=== PATIENT | female | born 1945 | race Caucasian/White ===

== ENCOUNTER 2016-07-07 08:00 | Outpatient (CLI) | payer BC, MEDICARE | END 2016-07-07 08:01 | disposition home or self-care (01) | DX: K57.92 Diverticulitis of intestine, part unspecified, without perforation or abscess without bleeding (principal); E03.9 Hypothyroidism, unspecified ==

== ENCOUNTER 2016-10-20 19:45 | Outpatient (CLI) | payer BC, MEDICARE | END 2016-10-20 19:46 | disposition home or self-care (01) | DX: R60.0 Localized edema (principal) ==

== ENCOUNTER 2016-10-26 12:50 | Outpatient (CLI) | payer BC, MEDICARE | END 2016-10-26 12:51 | disposition home or self-care (01) | DX: R06.00 Dyspnea, unspecified (principal); I25.10 Atherosclerotic heart disease of native coronary artery without angina pectoris ==

== ENCOUNTER 2017-02-17 09:22 | Outpatient (CLI) | payer BC, MEDICARE ==
[2017-02-17 13:03] LABS: HCT - HEMATOCRIT 38.5 % (37.0-47.0); HGB - HEMOGLOBIN 12.4 g/dL (12.0-16.0); MEAN CORPUSCULAR HEMOGLOBIN 28.4 pg (27.0-31.0); MEAN CORPUSCULAR HGB CONC 32.2 g/dL (32.0-36.0); MEAN CORPUSCULAR VOLUME 88.2 fL (81.0-99.0); MEAN PLATELET VOLUME 10.3 fL (7.9-10.8); RED BLOOD COUNT 4.37 10^6/uL (4.20-5.40); RED CELL DISTRIBUTION WIDTH 15.5 % (12.0-15.0); WHITE BLOOD COUNT 12.2 x10^3/uL (4.8-10.8)
[2017-02-17 13:34] LABS: ALBUMIN/GLOBULIN RATIO 0.9 (1.0-2.2); BILIRUBIN,TOTAL 0.4 mg/dL (0.2-1.0); BUN - BLOOD UREA NITROGEN 34 mg/dL (6-20); CALCIUM 9.4 mg/dL (8.5-10.3); CARBON DIOXIDE - CO2 20 mmol/L (21-32); CHLORIDE 113 mmol/L (101-111); CHOL/HDL RATIO 4.3 (<4.4); CHOLESTEROL 147 mg/dL; CREATININE 1.6 mg/dL (0.4-1.0); GFR - MDRD 32 (>89); GLUCOSE 104 mg/dL (70-100); HDL CHOLESTEROL 34 mg/dL; POTASSIUM 3.5 mmol/L (3.5-5.0); SODIUM 142 mmol/L (135-145); TOTAL PROTEIN 7.4 g/dL (6.7-8.2); TRIGLYCERIDES 231 mg/dL; URIC ACID 10.4 mg/dL (2.6-7.2); VLDL CHOLESTEROL 46 mg/dL
== END 2017-02-17 09:23 | disposition home or self-care (01) ==
LOC: LAB.WCP 09:22
PROVIDERS: ATTEND Family Medicine
DX: I25.10 Atherosclerotic heart disease of native coronary artery without angina pectoris (principal); M10.00 Idiopathic gout, unspecified site
CPT/HCPCS: 36415; 80053; 80061; 84550; 86140

== ENCOUNTER 2017-03-01 19:09 | Outpatient (CLI) | payer BC, MEDICARE ==
--- NOTE | 2017-03-01 20:19 | Ultrasound Preliminary Report ---
Exam: US Abdomen Limited IMPRESSION: distended gallbladder, sludge, gallbladder wall top normal for caliber and positive Trujillo's sign. Th is suggests early acalculus cholecystitis. [facility] SITE ID: [id number]
--- NOTE | 2017-03-01 20:36 | Ultrasound Report ---
EXAM: ABDOMEN ULTRASOUND LIMITED, RUQ EXAM DATE: 03/01/2017 07:54 PM. CLINICAL HISTORY: Abdominal pain, right upper quadrant. COMPARISON: CT abdomen and pelvis 06/28/2016. Limited abdominal ultrasound 08/10/2010. TECHNIQUE: Real-time scanning was performed with static images obtained. FINDINGS: Liver: Normal in size and echotexture. 14.5 cm. Main portal vein flow: Hepatopetal. Gallbladder: Distended. Gallbladder wall measures 3.0 mm. Focal tenderness. Moderate amount of sludge within the gallbladder. No gallstones. No pericholecystic fluid. Biliary System: CBD measures 8 mm. No intrahepatic biliary duct dilatation. Other: Right kidney measures 10.1 cm in length. There is a 9 mm cyst. No solid renal mass lesions nor hydronephrosis. No free fluid. IMPRESSION: Distended gallbladder, sludge, gallbladder wall top normal for caliber and positive Trujillo's sign. Th is suggests early acalculus cholecystitis. [facility] Referring Provider Line: [phone] SITE ID: [id number]
== END 2017-03-01 19:10 | disposition home or self-care (01) ==
LOC: DI 19:09
PROVIDERS: ATTEND Family Medicine
DX: R10.11 Right upper quadrant pain (principal); K82.8 Other specified diseases of gallbladder
CPT/HCPCS: 76705

== ENCOUNTER 2017-03-05 01:47 | Outpatient (CLI) | payer BC, MEDICARE | END 2017-03-05 01:48 | disposition critical access hospital (66) | LOC: EMS 01:47 | PROVIDERS: ATTEND Surgery | DX: R10.11 Right upper quadrant pain (principal) | CPT/HCPCS: A0425; A0427 ==

== ENCOUNTER 2017-03-05 02:14 | Inpatient (IN) | payer BC, MEDICARE ==
[2017-03-05] MEDS ORDERED: HYDROmorphone 1 MG/ML SYRINGE IVP STA (02:20)
[2017-03-05] MEDS ORDERED: ONDANSETRON 4 MG/2 ML VIAL IVP STA (02:20)
[2017-03-05] MEDS ORDERED: KETOROLAC 60 MG/2 ML VIAL IVP STA (02:20)
[2017-03-05] MEDS ORDERED: SODIUM CHLORIDE 0.9% 1,000 ML IV ONE (02:20)
[2017-03-05] MEDS ORDERED: KETOROLAC 30 MG/ML VIAL ONE (02:25)
[2017-03-05] MEDS ORDERED: ONDANSETRON 4 MG/2 ML VIAL ONE (02:26)
[2017-03-05] MEDS ORDERED: HYDROmorphone 1 MG/ML SYRINGE ONE (02:29)
[2017-03-05 02:35] LABS: EOSINOPHILS # (AUTO) 0.2 10^3/uL (0.0-0.7)
[2017-03-05 02:42] LABS: BASOPHILS # (AUTO) 0.1 10^3/uL (0.0-0.1); BASOPHILS % (AUTO) 0.7 %; EOSINOPHILS % (AUTO) 1.4 %; HCT - HEMATOCRIT 37.3 % (37.0-47.0); HGB - HEMOGLOBIN 12.2 g/dL (12.0-16.0); LYMPHOCYTES # (AUTO) 1.1 10^3/uL (1.5-3.5); LYMPHOCYTES % (AUTO) 7.1 %; MEAN CORPUSCULAR HEMOGLOBIN 28.4 pg (27.0-31.0); MEAN CORPUSCULAR HGB CONC 32.6 g/dL (32.0-36.0); MEAN CORPUSCULAR VOLUME 87.1 fL (81.0-99.0); MEAN PLATELET VOLUME 9.7 fL (7.9-10.8); MONOCYTES # (AUTO) 0.9 10^3/uL (0.0-1.0); MONOCYTES % (AUTO) 5.6 %; NEUTROPHILS % (AUTO) 85.2 %; RED BLOOD COUNT 4.28 10^6/uL (4.20-5.40); RED CELL DISTRIBUTION WIDTH 15.5 % (12.0-15.0); UNCORRECTED WHITE BLOOD COUNT 15.3 x10^3/uL; WHITE BLOOD COUNT 15.3 x10^3/uL (4.8-10.8)
[2017-03-05 02:44] LABS: ALBUMIN/GLOBULIN RATIO 0.9 (1.0-2.2); BILIRUBIN,TOTAL 1.2 mg/dL (0.2-1.0); CALCIUM 9.2 mg/dL (8.5-10.3); CREATININE 1.7 mg/dL (0.4-1.0); POTASSIUM 3.9 mmol/L (3.5-5.0); TOTAL PROTEIN 7.2 g/dL (6.7-8.2)
--- NOTE | 2017-03-05 03:00 | ED Physician Documentation ---
PD HPI ABD PAIN - Stated complaint Stated Complaint: RUQ PN - Chief complaint Chief Complaint: Abd Pain - History obtained from History obtained from: Patient - History of Present Illness Timing - onset: How many hours ago (1.5) Timing - details: Still present Pain level max: 10 Pain level now: 3 Quality: Pain Location: RUQ Improved by: Meds Associated symptoms: Nausea, Vomiting. No: Fever, Chest pain Similar symptoms before: Diagnosis (RUQ U/S 2 days ago revealed findings suggestive of acalculous cholecystitis.) Recently seen: Clinic - Treatment prior to arrival Treatment prior to arrival: Medics administered Fentanyl 150 mcg and Zofran 4 mg IV. - Additional information Additional information: The patient is a 71-year-old female who arrives via ambulance with right upper quadrant abdominal pain that started about 1.5 hours prior to arrival. She reports associated nausea and vomiting. Her pain was initially a 10 out of 10 in severity, but has improved to 3 out of 10 after administration of fentanyl and Zofran by paramedics. She was recently diagnosed with acalculous cholecystitis by ultrasound that was done 2 days ago. She is scheduled for cholecystectomy on 03/15/2017, but with her history of coronary artery disease, presurgical cardiac workup was anticipated. She denies recent fever, chest pain , or shortness of breath. She last ate at 6:30, when she had a salad with tomatoes and olives. Review of Systems Constitutional: denies: Fever Nose: denies: Congestion Throat: denies: Sore throat Cardiac: denies: Chest pain / pressure Respiratory: denies: Dyspnea, Cough GI: reports: Abdominal Pain, Nausea, Vomiting. 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 Cardiovascular: Coronary stent - Present Medications Home Medications: Ambulatory Orders Medication Instructions Recorded Confirmed Aspirin 81 mg PO DAILY 06/28/16 06/28/16 Atorvastatin [Lipitor] 40 mg PO QPM 06/28/16 06/28/16 Enalapril [Vasotec] 10 mg PO BID 06/28/16 06/28/16 Furosemide 40 mg PO DAILY PRN 06/28/16 06/28/16 Levothyroxine Sodium 150 mg PO DAILY 06/28/16 06/28/16 Metoprolol Tartrate [Lopressor] 25 mg PO BID 06/28/16 06/28/16 Oxybutynin [Ditropan] 5 mg PO BID PRN 06/28/16 06/28/16 Ciprofloxacin/Ciprofloxa HCl 500 mg PO BID #10 tbmp.24hr 06/30/16 [Cipro Xr 500 mg Tablet] Metronidazole 500 mg PO TID #21 tablet 06/30/16 - Allergies Allergies/Adverse Reactions: Allergies Allergy/AdvReac Type Severity Reaction Status Date / Time gentian jori Allergy Hives Verified 03/05/17 02:21 esomeprazole magnesium * AdvReac Unknown Verified 03/05/17 02:21 [From Nexium] - Social History Does the pt smoke?: Yes Smoking Status: Current every day smoker Does the pt drink ETOH?: No Does the pt have substance abuse?: No - Immunizations Immunizations are current?: Yes PD ED PE NORMAL - Vitals Vital signs reviewed: Yes (hypertensive) - General General: Alert and oriented X 3, Well developed/nourished - HEENT HEENT: EOMI, Moist mucous membranes, Pharynx benign - Neck Neck: No adenopathy, No JVD - Cardiac Cardiac: RRR, No murmur - Respiratory Respiratory: No respiratory distress, Clear bilaterally - Abdomen Abdomen: Normal bowel sounds, Soft, Other (Tenderness to palpation in the right upper quadrant, with positive Trujillo sign.) - Back Back: No CVA TTP - Derm Derm: No rash - Extremities Extremities: No edema, No calf tenderness / cord - Neuro Neuro: Alert and oriented X 3, No motor deficit, Normal speech Results - Vitals Vitals: Vital Signs - 24 hr 03/05/17 02:15 Temperature 36.0 C L Heart Rate 73 Respiratory 24 Rate Blood Pressure 158/80 H O2 Saturation 96 Oxygen O2 Source Room air - Labs Labs: Laboratory Tests 03/05/17 03/05/17 02:22 02:22 WBC 15.3 H RBC 4.28 Hgb 12.2 Hct 37.3 MCV 87.1 MCH 28.4 MCHC 32.6 RDW 15.5 H Plt Count 294 MPV 9.7 Neut # 13.0 H Lymph # 1.1 L Nobles # 0.9 Eos # 0.2 Baso # 0.1 Absolute Nucleated RBC 0.00 Nucleated RBCs 0.0 Sodium 138 Potassium 3.9 Chloride 103 Carbon Dioxide 21 Anion Gap 14.0 H BUN 32 H Creatinine 1.7 H Estimated GFR (MDRD) 29 L Glucose 145 H Calcium 9.2 Total Bilirubin 1.2 H AST 101 H ALT 106 H Alkaline Phosphatase 697 H Total Protein 7.2 Albumin 3.4 Globulin 3.8 Albumin/Globulin Ratio 0.9 L Lipase 89 H PD MEDICAL DECISION MAKING - ED course Complexity details: reviewed old records, reviewed results, re-evaluated patient , considered differential, d/w patient, d/w websphere commerce consultant ED course: The patient's presentation is most consistent with cholecystitis, with right upper quadrant tenderness, and white cell count of 15.3, with elevated alkaline phosphatase to 697, and bilirubin 1.2. Treatment in the emergency department included administration of normal saline IV, Dilaudid 1 mg IV, ketorolac 30 mg IV, and Zofran 4 mg IV. Her pain and nausea resolved with the above treatment, but on reexamination she continues to have right upper quadrant tenderness. I discussed her condition with Dr. Vegas, who will admit her for further evaluation and treatment. Departure - Departure Disposition: [facility] DC/nAgi Clinical Impression: Cholecystitis Condition: Stable
[2017-03-05] MEDS ORDERED: ONDANSETRON 4 MG/2 ML VIAL IVP PRN (03:21)
[2017-03-05] MEDS ORDERED: MORPHINE 2 MG/ML SYRINGE IVP PRN (03:21)
[2017-03-05] MEDS ORDERED: PIPERACILLIN/TAZOBACTAM 3.375 GM in SODIUM CHLORIDE 0.9% MINIBAG 100 ML IV SCH (04:00)
[2017-03-05] MEDS: LACTATED RINGERS 1,000 ML IV SCH ×3 (04:36→23:46)
[2017-03-05] MEDS: SODIUM CHLORIDE FLUSH 0.9% 10 ML SYRINGE IVP SCH ×3 (05:17→21:20)
[2017-03-05 08:49] LABS: BASOPHILS # (AUTO) 0.1 10^3/uL (0.0-0.1); BASOPHILS % (AUTO) 0.7 %; EOSINOPHILS # (AUTO) 0.1 10^3/uL (0.0-0.7); EOSINOPHILS % (AUTO) 0.5 %; HGB - HEMOGLOBIN 11.1 g/dL (12.0-16.0); LYMPHOCYTES # (AUTO) 0.9 10^3/uL (1.5-3.5); LYMPHOCYTES % (AUTO) 7.7 %; MEAN CORPUSCULAR HEMOGLOBIN 28.3 pg (27.0-31.0); MEAN CORPUSCULAR HGB CONC 32.5 g/dL (32.0-36.0); MEAN PLATELET VOLUME 9.1 fL (7.9-10.8); MONOCYTES # (AUTO) 0.7 10^3/uL (0.0-1.0); MONOCYTES % (AUTO) 5.5 %; NEUTROPHILS # (AUTO) 10.5 10^3/uL (1.5-6.6); NEUTROPHILS % (AUTO) 85.6 %; RED CELL DISTRIBUTION WIDTH 15.5 % (12.0-15.0); UNCORRECTED WHITE BLOOD COUNT 12.2 x10^3/uL; WHITE BLOOD COUNT 12.2 x10^3/uL (4.8-10.8)
[2017-03-05 09:00] LABS: BILIRUBIN,TOTAL 1.5 mg/dL (0.2-1.0); CALCIUM 8.5 mg/dL (8.5-10.3); CREATININE 1.4 mg/dL (0.4-1.0); POTASSIUM 4.4 mmol/L (3.5-5.0); TOTAL PROTEIN 5.9 g/dL (6.7-8.2)
[2017-03-05] MEDS ORDERED: LEVOTHYROXINE 75 MCG TABLET PO SCH (09:00)
--- NOTE | 2017-03-05 10:22 | HISTORY & PHYSICAL EXAMINATION ---
DATE OF ADMISSION: 03/05/2017 REASON FOR ADMISSION: Acute cholecystitis. HISTORY OF PRESENT ILLNESS: This is a 71-year-old female who in the recent past was diagnosed with ac alculous cholecystitis. She was seen by me in the office approximately 1 week ago and surgery was julio c nned for a week from next Wednesday. In the interim, she developed increasing right upper quadrant pa in associated with nausea and vomiting and was seen in the emergency department. Upon evaluation in [facility] ER, she was noted to have a white blood cell count of 15 with elevated LFTs, including a total molina irubin of 1.2 and an alkaline phosphatase of 697. Subsequently, a surgical consultation was obtained. Upon my evaluation of the patient, she is now resting comfortably with her abdominal pain improved. Her vital signs are stable. PAST MEDICAL HISTORY: Significant for cardiovascular disease status post 2 myocardial infarcts in the past, the most recent was 5 years ago. Her integrity manager is Dr. Rai who she was last seen by appr oximately a month ago. She denies any shortness of breath at rest, but does have some shortness of br eath with exertion. Additional medical history includes hypertension, hypercholesterolemia, hypothyro idism, overactive bladder. PAST SURGICAL HISTORY: Total abdominal hysterectomy and oophorectomy, appendectomy, and lysis of adhe sions. Additionally, the patient has undergone an ERCP in 2010 for similar problems. SOCIAL HISTORY: The patient smokes 1/4 of a pack of cigarettes daily. She denies alcohol use. HOME MEDICATIONS 1. Allopurinol 100 mg 2 tablets once daily. 2. Furosemide 40 mg 1-2 tablets every day. 3. Oxybutynin 5 mg p.o. twice daily. 4. Lipitor 40 mg p.o. daily. 5. Aspirin 81 mg p.o. daily. 6. Metoprolol 25 mg twice daily. 7. Levothyroxine 137 mcg once daily. ALLERGIES TO MEDICATION: 1. PRILOSEC. 2. GENTIAN DIANA. PHYSICAL EXAMINATION VITAL SIGNS: Temperature is 36.0, blood pressure 158/80, heart rate 73, respiratory rate 24, O2 satur ations 96% on room air. GENERAL: The patient is awake, alert, oriented x3, in no acute distress. She is of average build. CARDIOVASCULAR: Regular rate and rhythm. CHEST: Clear to auscultation bilaterally. No rhonchi or wheezing. ABDOMEN: Soft, nondistended. Tender to palpation in the right upper quadrant with positive guarding, but no rebound tenderness and no rigidity. EXTREMITIES: Nonedematous. LABORATORY VALUES: White count 15.3, hemoglobin 12.2, hematocrit 37.3, platelets 294. Sodium 138, pot assium 3.9, chloride 103, bicarbonate 21, BUN 32, creatinine 1.7, total bilirubin 1.2, AST 118, ALT 1 06, alkaline phosphatase 697, lipase 89. ASSESSMENT: This is a 71-year-old female who presents with acute cholecystitis and elevated liver fun ction tests. PLAN: The patient will be admitted to the surgical service. She was placed n.p.o. and placed on IV fl uids for resuscitation. She will be placed on antibiotics. LFTs will be recessed in the morning and i f they are not trending down, an MRCP will be warranted to ensure there is no choledocholithiasis pre sent prior to proceeding with laparoscopic cholecystectomy. JOB #: [id number] EXT JOB #:[id number]
[2017-03-05] MEDS: PIPERACILLIN/TAZOBACTAM 2.25 GM in SODIUM CHLORIDE 0.9% MINIBAG 100 ML IV SCH ×2 (11:34→17:26)
[2017-03-05] MEDS: SODIUM CHLORIDE FLUSH 0.9% 10 ML SYRINGE IVP PRN (11:34)
--- NOTE | 2017-03-05 12:00 | MRI Preliminary Report ---
Exam: MRI MRCP W/O IMPRESSION: 1. Exam is worrisome for acalculous cholecystitis. Distended gallbladder with mildly thickened, edema tous wall. Trace pericholecystic edema. Dependent sludge within gallbladder. No gallstone evident. 2. No choledocholithiasis or significant biliary ductal dilatation. 3. Diverticulosis without evidence for diverticulitis. [facility] SITE ID: [id number]
--- NOTE | 2017-03-05 12:03 | MRI Report ---
EXAM: MR ABDOMEN WITHOUT CONTRAST (MR CHOLANGIOPANCREATOGRAPHY) EXAM DATE: 03/05/2017 11:31 AM. CLINICAL HISTORY: ELEVATED LFTS, CHOLECYSTITIS. COMPARISON: Right upper quadrant abdominal ultrasound 03/01/[address] 06/28/2016. TECHNIQUE: Multiplanar breath-hold T1 and T2 sequences obtained through the abdomen on an MR scanner. Dedicated 2D and 3D MRCP sequences obtained through the biliary and pancreatic ducts. No intravenous contrast given. FINDINGS: Lung Bases: The lung bases are clear. Liver: The liver has normal size, morphology and signal. No evidence of mass. The intrahepatic bile d ucts appear normal. CBD: The extrahepatic ducts appear normal. The CBD is 6 mm in diameter. Gallbladder: Distended gallbladder with mild diffuse 3 mm wall thickening. Gallbladder wall appears e dematous. No gallstone evident. Dependent sludge. Trace pericholecystic edema. Pancreas: The pancreas appears normal with no mass. The pancreatic duct measures 1-3 mm in diameter a nd appears normal with no stone or stricture. No pancreas divisum. Spleen: The spleen appears normal. Kidneys and Adrenals: No suspicious renal mass. No hydronephrosis. There are small right renal cysts. The adrenals appear normal. Bowel: Diverticulosis noted. No pericolonic inflammation evident. No dilated bowel. Retroperitoneum: The retroperitoneal structures appear normal with no mass or lymphadenopathy. IMPRESSION: 1. Exam is worrisome for acalculous cholecystitis. Distended gallbladder with mildly thickened, edema tous wall. Trace pericholecystic edema. Dependent sludge within gallbladder. No gallstone evident. 2. No choledocholithiasis or significant biliary ductal dilatation. 3. Diverticulosis without evidence for diverticulitis. [facility] Referring Provider Line: [phone] SITE ID: [id number]
[2017-03-05] MEDS: METOPROLOL TARTRATE 25 MG TABLET PO SCH ×2 (13:30→21:17)
[2017-03-05] MEDS ORDERED: MIDAZOLAM 2 MG/2 ML VIAL IVP ONE (18:00)
[2017-03-05] MEDS ORDERED: fentaNYL 100 MCG/2 ML VIAL IVP ONE (18:00)
--- NOTE | 2017-03-05 18:38 | PROCEDURE REPORT ---
Hospitalist Procedure Note - Procedure Note Procedure Note: Patient was taken to operating room for planned cholecystectomy. Prior to induction she was noted to be in new onset atrial fibrillation. She is asymptomatic otherwise with a heart rate between 60-100 and is normotensive. Surgery was cancelled and medical consult obtained. Echo ordered. It was explained to the patient that she will be treated with antibiotics for her cholecystitis until the atrial fibrillation is worked up. There is no contraindication to IV heparin prior to surgery if indicated.
[2017-03-05] MEDS ORDERED: LACTATED RINGERS 1,000 ML IV ONE (18:55)
[2017-03-05] MEDS ORDERED: ENALAPRIL 5 MG TABLET PO SCH (21:00)
--- NOTE | 2017-03-05 21:36 | XRAY Preliminary Report ---
Exam: XR Chest 1 View IMPRESSION: Minimal basilar atelectasis, otherwise grossly clear. [facility] SITE ID: [id number]
--- NOTE | 2017-03-05 21:38 | XRAY Report ---
EXAM: CHEST RADIOGRAPHY EXAM DATE: 03/05/2017 09:27 PM. CLINICAL HISTORY: New Afib. COMPARISON: 10/19/2016. TECHNIQUE: 1 view. FINDINGS: Lungs/Pleura: Minimal basilar atelectasis. No focal infiltrate or consolidation appreciated. No pneum othorax or large pleural effusion. Mediastinum: Within exam limitations, cardiomediastinal contour is normal. Other: None. IMPRESSION: Minimal basilar atelectasis, otherwise grossly clear. [facility] Referring Provider Line: [phone] SITE ID: [id number]
--- NOTE | 2017-03-05 23:57 | CONSULTATION NOTE ---
DATE OF CONSULTATION: 03/05/2017 00:00:00 REQUESTING PROVIDER: REASON FOR CONSULTATION: New onset of atrial fibrillation suspected just before surgery. LOCATION: Med/Surg. HISTORY OF PRESENT ILLNESS: This is a 71-year-old white female with history of coronary disease status post 2 MIs and requiring stenting twice, 10 years ago and 5 years ago. She has a history of hypothyroidism, prior abdominal diagnoses , and is admitted now with acalculous cholecystitis, and was to be seen by her chief controller tower next week for preoperative clearance for elective abdominal surgery. She presented here with increasing right upper quadrant pain, nausea and vomiting, and elevated white count and LFTs and bilirubin, and was admitted, and surgery on the gallbladder was planned for today. In the anesthesia holding area, the rhythm monitor appeared to be atrial fibrillation, and therefore the procedure was canceled and a consult was called. The patient denies ever having been told she had atrial fibrillation. She never feels palpitations. Her only episodes of chest pain which were severe were with the 2 MIs. She does not get angina. She has never needed a stress test. She has never needed a Holter. She denies any CHF symptoms. PAST SURGERIES Includes: 1. Hysterectomy and oophorectomy. 2. Appendectomy. 3. Lysis of adhesions. 4. ERCP. SOCIAL HISTORY: The patient is a 1/0-xkyu-o-day smoker, and does not drink alcohol. MEDICATIONS AT HOME 1. Allopurinol. 2. Furosemide. 3. Oxybutynin. 4. Lipitor. 5. Baby aspirin. 6. Metoprolol. 7. Levothyroxine. ALLERGIES 1. PRILOSEC. 2. GENTIAN DIANA. REVIEW OF SYSTEMS: Only as above, reviewing all pertinent organ systems. PHYSICAL EXAMINATION GENERAL: Physical exam reveals a white female who is in no distress. She has no further abdominal pain now and only complains of being hungry. VITAL SIGNS: Blood pressure 128/70. Heart rate is in the 70s in sinus rhythm with a marked first-degree block and frequent PVCs, occasionally trigeminy. HEENT: Unremarkable. Moist mucosa. NECK: No JVD at a 30-degree upright angle. No carotid bruits. No thyromegaly. LUNGS: Clear. HEART: Sounds are normal. No audible murmur. ABDOMEN: Soft. EXTREMITIES: No clubbing, cyanosis, or edema. Good dorsalis pedis pulses. NEUROLOGIC: Grossly intact. LABORATORY Sodium 137, potassium 4.4. BUN on admission 32, now 28. Creatinine on admission 1.7, now 1.4. AST 101, then went up to 244. ALT 106, then went up to 184. Alkaline phosphatase 697 and on repeat 655. Lipase 89 and then on repeat 77. White blood count 15.3; hemoglobin and platelet count normal. No INR was done. IMAGING No chest x-ray was done. No EKG was done in the anesthesia holding area before surgery. I reviewed the telemetry strips with the anesthesiologist, who suspected that this was fibrillation, and there was a very wavy baseline, and this may actually be sinus rhythm with marked first-degree block, but very frequent PVCs are seen, and ventricular couplets and possibly multifocal ventricular triplet. IMPRESSION/ Dx: 1. Dysrhythmia, which probably is sinus rhythm with first-degree block and frequent ventricular ectopy, but not atrial fibrillation, by my review of all the available data. 2. Cholecystitis. 3. Coronary artery disease with stents and prior myocardial infarction. 4. Hypothyroidism. RECOMMENDATIONS: Obtain troponins x3 to rule out an acute LA, and obtain a BNP and a chest x-ray. Obtain an EKG to document the rhythm, and place her on telemetry. Obtain a free T4 to determine that hyperthyroidism is not creating this dysrhythmia. I agree with ordering the Echo. Given the fact that she has had no chest pain other than her 2 MIs which were remote, I suspect this is not an ischemic event, even with the frequent ventricular ectopy. Obtain a magnesium level now, and check electrolytes tomorrow. Further recommendations will depend on her course. Thank you for allowing me to participate in the care of this patient. JOB #: [id number] EXT JOB #:[id number] CHAY
[2017-03-06] MEDS: PIPERACILLIN/TAZOBACTAM 2.25 GM in SODIUM CHLORIDE 0.9% MINIBAG 100 ML IV SCH ×5 (01:03→23:45)
[2017-03-06] MEDS: SODIUM CHLORIDE FLUSH 0.9% 10 ML SYRINGE IVP PRN (01:09)
[2017-03-06 02:44] LABS: CALCIUM 8.2 mg/dL (8.5-10.3); CREATININE 1.3 mg/dL (0.4-1.0)
[2017-03-06 03:14] LABS: THYROID STIMULATING HORMONE 0.11 uIU/mL (0.34-5.60)
[2017-03-06] MEDS: SODIUM CHLORIDE FLUSH 0.9% 10 ML SYRINGE IVP SCH ×3 (05:42→21:10)
[2017-03-06 07:13] LABS: BASOPHILS % (AUTO) 0.7 %; EOSINOPHILS # (AUTO) 0.4 10^3/uL (0.0-0.7); EOSINOPHILS % (AUTO) 5.7 %; HCT - HEMATOCRIT 32.7 % (37.0-47.0); HGB - HEMOGLOBIN 10.8 g/dL (12.0-16.0); LYMPHOCYTES # (AUTO) 1.2 10^3/uL (1.5-3.5); LYMPHOCYTES % (AUTO) 18.5 %; MEAN CORPUSCULAR HEMOGLOBIN 28.7 pg (27.0-31.0); MEAN CORPUSCULAR VOLUME 86.9 fL (81.0-99.0); MEAN PLATELET VOLUME 8.8 fL (7.9-10.8); MONOCYTES # (AUTO) 0.4 10^3/uL (0.0-1.0); MONOCYTES % (AUTO) 6.4 %; NEUTROPHILS # (AUTO) 4.4 10^3/uL (1.5-6.6); NEUTROPHILS % (AUTO) 68.7 %; RED BLOOD COUNT 3.76 10^6/uL (4.20-5.40); RED CELL DISTRIBUTION WIDTH 16.1 % (12.0-15.0); UNCORRECTED WHITE BLOOD COUNT 6.4 x10^3/uL; WHITE BLOOD COUNT 6.4 x10^3/uL (4.8-10.8)
[2017-03-06] MEDS: LACTATED RINGERS 1,000 ML IV SCH ×2 (08:20→21:09)
--- NOTE | 2017-03-06 09:12 | PROVIDER PROGRESS NOTE ---
Assessment/Plan - Problem List (1) Cholecystitis Assessment/Plan: Plan per surgery. Ok to proceed (2) CAD (coronary artery disease), [place] coronary artery Qualifiers: [place] vs. transplanted heart: [place] heart Associated angina: without angina Qualified Code(s): I25.10 - Atherosclerotic heart disease of [place] coronary artery without angina pectoris Assessment/Plan: HX of NC X2 and PCI with Stent placement. Last 2004 PT denies chest pain or anginal Sx troponin negative No acute ischemic changes on ECG ECHO negative for acute changes. No wall motion abnormalities. No valvular heart disease Plan No further ischemic work-up needed PT may proceed with scheduled surgery Followup with outpatient cardiology as directed (3) Dysrhythmia, cardiac Qualifiers: Arrhythmia type: premature depolarization Premature depolarization type: ventricular Qualified Code(s): I49.3 - Ventricular premature depolarization Assessment/Plan: PVCs, 1st degree AVB. No atrial fibrillation on ECG or telemetry by review. Asymptomatic TSH 0.11 PT with hypothyroidsim on levothyroxine PT on low dose BB which is appropriate Plan Decrease Thyroid replacement dosing Continue BB No further work-up needed at this time Pt does not require oral anticoagulations. (4) Hypothyroid Assessment/Plan: TSH 0.11 with T4 1.46 May be playing a role in her PVCs and dysrhythmias Plan Decrease Levothyroxine to 125 mcg - Current Meds Current Meds: Current Medications Generic Name Dose Route Start Last Admin Trade Name Freq PRN Reason Stop Dose Admin Lactated Ringer's 1,000 mls @ 125 mls/hr 03/05/17 04:00 03/05/17 23:46 Lr IV 125 mls/hr .Q8H CHYNA Administration Piperacillin Sod/Tazobactam 100 mls @ 200 mls/hr 03/05/17 12:00 03/06/17 05:38 Sod 2.25 gm/ Sodium Chloride IV 200 mls/hr Q6H CHYNA Administration Levothyroxine Sodium 150 mcg 03/05/17 09:00 03/05/17 11:33 Synthroid PO 150 mcg DAILY CHYNA Administration Metoprolol Tartrate 25 mg 03/05/17 10:00 03/05/17 21:17 Lopressor PO 25 mg BID CHYNA Administration Morphine Sulfate 2 mg 03/05/17 03:21 03/06/17 08:40 Morphine IVP 1 mg Q2H PRN Administration Pain 8 to 10 Sodium Chloride 10 ml 03/05/17 03:21 03/06/17 01:09 Normal Saline Flush 0.9% IVP 10 ml PRN PRN Administration NEEDED PER PROVIDER ORDERS Sodium Chloride 10 ml 03/05/17 06:00 03/06/17 05:42 Normal Saline Flush 0.9% IVP Not Given Q8HR CHYNA - Lab Result Fish Bone Diagrams: 03/06/17 07:00 03/06/17 02:09 - EKG Results EKG Interpreted Independently: Yes EKG Comparison: No prior EKG - Diagnostic Imaging Results Diagnostic Imaging Results: Final report reviewed - Additional Planning Condition/Complexity: Stable Plan Discussed with:: Patient Time Spent: 15-30 minutes Subjective - Subjective Patient Reports: Abdominal Pain (Pain with movement and activity. No pain at rest), Other (Denies chest pain or anginal SX. No dyspnea) Nursing Reports: No Complaints Objective Vital Signs: Vital Signs - 24 hr 03/05/17 03/05/17 03/05/17 19:38 21:17 23:40 Temperature 36.6 C 36.6 C Heart Rate [ 68 61 Brachial] Respiratory 18 16 Rate Blood Pressure 136/81 H Blood Pressure 140/63 H 143/66 H [Right Brachial artery] O2 Saturation 100 94 03/06/17 03/06/17 04:50 08:52 Temperature 36.4 C L 36.9 C Heart Rate [ 68 60 Brachial] Respiratory 16 16 Rate Blood Pressure Blood Pressure 146/73 H 144/66 H [Right Brachial artery] O2 Saturation 95 97 Oxygen O2 Source Room air I&O (Last 24 Hrs): Intake and Output Totals x24h 03/04/17 03/05/17 03/06/17 23:59 23:59 23:59 Intake Total 1042 Balance 1042 General: Alert, Oriented x3, No acute distress HEENT: Atraumatic, PERRLA, EOMI Neck: No JVD Neuro: Alert, CN 2-12 Grossly Intact, Oriented Times 3 Cardiovascular: Regular rate Respiratory: No respiratory distress, Breath sounds nml Abdomen: Normal bowel sounds Extremities: No clubbing, No edema, Normal pulses Skin: No rashes, No significant lesion - Results Results: Laboratory Results WBC 6.4 x10^3/uL (4.8-10.8) 03/06/17 07:00 RBC 3.76 10^6/uL (4.20-5.40) L 03/06/17 07:00 Hgb 10.8 g/dL (12.0-16.0) L 03/06/17 07:00 Hct 32.7 % (37.0-47.0) L 03/06/17 07:00 MCV 86.9 fL (81.0-99.0) 03/06/17 07:00 MCH 28.7 pg (27.0-31.0) 03/06/17 07:00 MCHC 33.0 g/dL (32.0-36.0) 03/06/17 07:00 RDW 16.1 % (12.0-15.0) H 03/06/17 07:00 Plt Count 246 10^3/uL (130-450) 03/06/17 07:00 MPV 8.8 fL (7.9-10.8) 03/06/17 07:00 Neut # 4.4 10^3/uL (1.5-6.6) 03/06/17 07:00 Lymph # 1.2 10^3/uL (1.5-3.5) L 03/06/17 07:00 [place] # 0.4 10^3/uL (0.0-1.0) 03/06/17 07:00 Eos # 0.4 10^3/uL (0.0-0.7) 03/06/17 07:00 Baso # 0.0 10^3/uL (0.0-0.1) 03/06/17 07:00 Absolute Nucleated RBC 0.00 x10^3/uL 03/06/17 07:00 Nucleated RBCs 0.0 /100WBC 03/06/17 07:00 Sodium 138 mmol/L (135-145) 03/06/17 02:09 Potassium 4.0 mmol/L (3.5-5.0) 03/06/17 02:09 Chloride 109 mmol/L (101-111) 03/06/17 02:09 Carbon Dioxide 23 mmol/L (21-32) 03/06/17 02:09 Anion Gap 6.0 (6-13) 03/06/17 02:09 BUN 19 mg/dL (6-20) 03/06/17 02:09 Creatinine 1.3 mg/dL (0.4-1.0) H 03/06/17 02:09 Estimated GFR (MDRD) 40 (>89) L 03/06/17 02:09 Glucose 77 mg/dL (70-100) 03/06/17 02:09 Calcium 8.2 mg/dL (8.5-10.3) L 03/06/17 02:09 Magnesium 2.1 mg/dL (1.7-2.8) 03/06/17 02:09 Total Bilirubin 1.5 mg/dL (0.2-1.0) H 03/05/17 08:38 Direct Bilirubin 1.0 mg/dL (0.1-0.5) H 03/05/17 08:38 AST 394 IU/L (10-42) H 03/06/17 02:09 ALT 290 IU/L (10-60) H 03/06/17 02:09 Alkaline Phosphatase 655 IU/L (42-121) H 03/05/17 08:38 Troponin I < 0.04 ng/mL (<0.49) 03/06/17 02:09 B-Natriuretic Peptide 472 pg/mL (5-100) H 03/05/17 07:00 Total Protein 5.9 g/dL (6.7-8.2) L 03/05/17 08:38 Albumin 2.8 g/dL (3.2-5.5) L 03/05/17 08:38 Globulin 3.1 g/dL (2.1-4.2) 03/05/17 08:38 Albumin/Globulin Ratio 0.9 (1.0-2.2) L 03/05/17 02:22 Lipase 77 U/L (22-51) H 03/05/17 08:38 TSH 0.11 uIU/mL (0.34-5.60) L 03/06/17 02:09 Free T4 1.46 ng/dL (0.58-1.64) 03/06/17 02:09
[2017-03-06] MEDS: LEVOTHYROXINE 125 MCG TABLET PO SCH (10:07)
[2017-03-06] MEDS: METOPROLOL TARTRATE 25 MG TABLET PO SCH ×2 (10:07→21:09)
[2017-03-06] MEDS ORDERED: LEVOTHYROXINE 125 MCG TABLET ONE (10:09)
[2017-03-06] MEDS ORDERED: IOTHALAMATE MEGLUMINE 50 ML VIAL IVP ONE (13:23)
[2017-03-06] MEDS ORDERED: LACTATED RINGERS 1,000 ML IV ONE ×2 (13:25→14:00)
[2017-03-06] MEDS ORDERED: KETOROLAC 30 MG/ML VIAL IVP ONE (13:30)
[2017-03-06] MEDS ORDERED: ROCURONIUM 50 MG/5 ML VIAL IVP ONE (13:30)
[2017-03-06] MEDS ORDERED: fentaNYL 100 MCG/2 ML VIAL IVP ONE (13:30)
[2017-03-06] MEDS ORDERED: DEXAMETHASONE 4 MG/ML VIAL IVP ONE (13:30)
[2017-03-06] MEDS ORDERED: GLYCOPYRROLATE 1 MG/5 ML VIAL IVP ONE (13:30)
[2017-03-06] MEDS ORDERED: NEOSTIGMINE 1 MG/1 ML 10 ML MDV IVP ONE (13:30)
[2017-03-06] MEDS ORDERED: SUCCINYLCHOLINE 200 MG/10 ML VIAL IVP ONE (13:30)
[2017-03-06] MEDS ORDERED: LIDOCAINE-MPF 2% 5 ML VIAL IM ONE (13:30)
[2017-03-06] MEDS ORDERED: ACETAMINOPHEN 1,000 MG/100 ML 100 ML IV ONE (13:30)
[2017-03-06] MEDS ORDERED: MIDAZOLAM 2 MG/2 ML VIAL IVP ONE (13:30)
[2017-03-06] MEDS ORDERED: ePHEDrine 50 MG/ML VIAL IVP ONE (13:30)
[2017-03-06] MEDS ORDERED: ETOMIDATE 40 MG/20 ML VIAL IVP ONE (13:30)
[2017-03-06] MEDS ORDERED: BUPIVACAINE 0.5%-EPI 1:200000 PF 30 ML VIAL SUBQ ONE ×2 (13:31)
[2017-03-06] MEDS ORDERED: HYDROcod/ACETAM 5/325 MG TABLET PO PRN ×2 (13:58→13:59)
--- NOTE | 2017-03-06 15:09 | XRAY Preliminary Report ---
Exam: [place] OR Cholangiogram IMPRESSION: A catheter has been placed into the cystic duct remnant following cholecystectomy. The du ct is partially opacified and appears dilated. Cholangiography shows opacification of the bile ducts. Visualized ducts show no filling defects. Spill of contrast into the duodenum documented. [facility] SITE ID: [id number]
--- NOTE | 2017-03-06 15:11 | XRAY Report ---
EXAM: INTRAOPERATIVE CHOLANGIOGRAM EXAM DATE: 03/06/2017 01:46 PM. CLINICAL HISTORY: CHOLANGIOGRAM. COMPARISONS: None. TECHNIQUE: Dr. Finn Whatley performed the procedure. Please see the operative notes for details. Fluoroscopy Time: 18 seconds. Number of Images: 1. FINDINGS/IMPRESSION: A catheter has been placed into the cystic duct remnant following cholecystectom y. The duct is partially opacified and appears dilated. Cholangiography shows opacification of the bi le ducts. Visualized ducts show no filling defects. Spill of contrast into the duodenum documented. [facility] Referring Provider Line: [phone] SITE ID: [id number]
[2017-03-07] MEDS: PIPERACILLIN/TAZOBACTAM 2.25 GM in SODIUM CHLORIDE 0.9% MINIBAG 100 ML IV SCH (05:16)
[2017-03-07] MEDS: SODIUM CHLORIDE FLUSH 0.9% 10 ML SYRINGE IVP SCH (06:21)
[2017-03-07] MEDS: LEVOTHYROXINE 125 MCG TABLET PO SCH (06:22)
[2017-03-07] MEDS: METOPROLOL TARTRATE 25 MG TABLET PO SCH (09:47)
[2017-03-07 09:48] VITALS: BP 137/66
[2017-03-07] MEDS: LACTATED RINGERS 1,000 ML IV SCH (09:48)
--- NOTE | 2017-03-07 09:58 | PROVIDER PROGRESS NOTE ---
Assessment/Plan - Problem List (1) Cholecystitis Assessment/Plan: Plan per surgery (2) CAD (coronary artery disease), [place] coronary artery Qualifiers: [place] vs. transplanted heart: [place] heart Associated angina: without angina Qualified Code(s): I25.10 - Atherosclerotic heart disease of [place] coronary artery without angina pectoris Assessment/Plan: HX PCI No anginal SX reported Recommendations Continue current medications Followup with OP cardiology as directed (3) Dysrhythmia, cardiac Qualifiers: Arrhythmia type: premature depolarization Premature depolarization type: ventricular Qualified Code(s): I49.3 - Ventricular premature depolarization Assessment/Plan: Ectopic atrial and ventricular beats with aberrancy Asymptomatic Per pt she has long HX of "extra beats" Recommendations No further evaluation needed at this time Followup with cardiology as OP Discharge when OK with surgery (4) Hypothyroid Assessment/Plan: TSH 0.11 during hospitalization Levothyroxine decreased Recommendation Continue lower dose thyroid replacement upon discharge Recheck thyroid panel in 3 months Followup with PCP - Current Meds Current Meds: Current Medications Generic Name Dose Route Start Last Admin Trade Name Freq PRN Reason Stop Dose Admin Acetaminophen/Hydrocodone Bitart 1 tab 03/06/17 13:58 03/06/17 18:24 [place] 5/325 PO 1 tab Q4HR PRN Administration PAIN Piperacillin Sod/Tazobactam 100 mls @ 200 mls/hr 03/05/17 12:00 03/07/17 05:16 Sod 2.25 gm/ Sodium Chloride IV 200 mls/hr Q6H CHYNA Administration Lactated Ringer's 1,000 mls @ 60 mls/hr 03/06/17 13:59 03/07/17 09:48 Lr IV Not Given .[id number] CHYNA Levothyroxine Sodium 125 mcg 03/07/17 07:00 03/07/17 06:22 Synthroid PO 125 mcg QDAC CHYNA Administration Metoprolol Tartrate 25 mg 03/05/17 10:00 03/07/17 09:47 Lopressor PO 25 mg BID CHYNA Administration Morphine Sulfate 2 mg 03/05/17 03:21 03/06/17 08:40 Morphine IVP 1 mg Q2H PRN Administration Pain 8 to 10 Sodium Chloride 10 ml 03/05/17 03:21 03/06/17 01:09 Normal Saline Flush 0.9% IVP 10 ml PRN PRN Administration NEEDED PER PROVIDER ORDERS Sodium Chloride 10 ml 03/05/17 06:00 03/07/17 06:21 Normal Saline Flush 0.9% IVP Not Given Q8HR CHYNA - Lab Result Fish Bone Diagrams: 03/06/17 07:00 03/06/17 02:09 - Additional Planning Condition/Complexity: Stable My Orders: My Active Orders 03/07/17 07:00 Levothyroxine [Synthroid] 125 mcg PO QDAC Plan Discussed with:: Patient Time Spent: Less than 15 minutes Subjective - Subjective Patient Reports: Feeling Better (PT feels well and wants to go home today) Nursing Reports: No Complaints Objective Vital Signs: Vital Signs - 24 hr 03/06/17 03/06/17 03/06/17 12:15 14:05 14:10 Temperature 36.8 C Heart Rate [ 60 Brachial] Respiratory 12 Rate Blood Pressure Blood Pressure 142/57 H [Right Brachial artery] O2 Saturation 97 98 98 03/06/17 03/06/17 03/06/17 14:15 14:20 14:30 Temperature Heart Rate [ Brachial] Respiratory Rate Blood Pressure Blood Pressure [Right Brachial artery] O2 Saturation 99 99 99 03/06/17 03/06/17 03/06/17 15:00 15:30 16:30 Temperature 36.3 C L 35.7 C L Heart Rate [ 54 L 54 L 47 L Brachial] Respiratory 14 16 18 Rate Blood Pressure Blood Pressure 159/64 H 151/69 H 155/74 H [Right Brachial artery] O2 Saturation 98 95 98 03/06/17 03/06/17 03/06/17 17:30 19:41 21:09 Temperature 36.3 C L 36.9 C Heart Rate [ 62 70 Brachial] Respiratory 16 16 Rate Blood Pressure 162/80 H Blood Pressure 160/48 H 138/75 H [Right Brachial artery] O2 Saturation 100 97 03/06/17 03/07/17 03/07/17 23:55 05:30 08:06 Temperature 36.6 C 36.7 C 36.5 C Heart Rate [ 51 L 50 L 60 Brachial] Respiratory 16 16 16 Rate Blood Pressure Blood Pressure 150/67 H 157/77 H 146/71 H [Right Brachial artery] O2 Saturation 94 95 98 03/07/17 09:47 Temperature Heart Rate [ Brachial] Respiratory Rate Blood Pressure 137/66 H Blood Pressure [Right Brachial artery] O2 Saturation Oxygen O2 Source Room air I&O (Last 24 Hrs): Intake and Output Totals x24h 03/05/17 03/06/17 03/07/17 23:59 23:59 23:59 Intake Total 1582 970 Balance 1582 970 General: Alert, Oriented x3 HEENT: PERRLA, EOMI Neck: No JVD Neuro: Alert, CN 2-12 Grossly Intact Cardiovascular: Regular rate, Other (1-2/6 JOHNATHAN) Respiratory: No respiratory distress Abdomen: Normal bowel sounds Skin: No rashes, No significant lesion - Results Results: Laboratory Results WBC 6.4 x10^3/uL (4.8-10.8) 03/06/17 07:00 RBC 3.76 10^6/uL (4.20-5.40) L 03/06/17 07:00 Hgb 10.8 g/dL (12.0-16.0) L 03/06/17 07:00 Hct 32.7 % (37.0-47.0) L 03/06/17 07:00 MCV 86.9 fL (81.0-99.0) 03/06/17 07:00 MCH 28.7 pg (27.0-31.0) 03/06/17 07:00 MCHC 33.0 g/dL (32.0-36.0) 03/06/17 07:00 RDW 16.1 % (12.0-15.0) H 03/06/17 07:00 Plt Count 246 10^3/uL (130-450) 03/06/17 07:00 MPV 8.8 fL (7.9-10.8) 03/06/17 07:00 Neut # 4.4 10^3/uL (1.5-6.6) 03/06/17 07:00 Lymph # 1.2 10^3/uL (1.5-3.5) L 03/06/17 07:00 [place] # 0.4 10^3/uL (0.0-1.0) 03/06/17 07:00 Eos # 0.4 10^3/uL (0.0-0.7) 03/06/17 07:00 Baso # 0.0 10^3/uL (0.0-0.1) 03/06/17 07:00 Absolute Nucleated RBC 0.00 x10^3/uL 03/06/17 07:00 Nucleated RBCs 0.0 /100WBC 03/06/17 07:00 Sodium 138 mmol/L (135-145) 03/06/17 02:09 Potassium 4.0 mmol/L (3.5-5.0) 03/06/17 02:09 Chloride 109 mmol/L (101-111) 03/06/17 02:09 Carbon Dioxide 23 mmol/L (21-32) 03/06/17 02:09 Anion Gap 6.0 (6-13) 03/06/17 02:09 BUN 19 mg/dL (6-20) 03/06/17 02:09 Creatinine 1.3 mg/dL (0.4-1.0) H 03/06/17 02:09 Estimated GFR (MDRD) 40 (>89) L 03/06/17 02:09 Glucose 77 mg/dL (70-100) 03/06/17 02:09 Calcium 8.2 mg/dL (8.5-10.3) L 03/06/17 02:09 Magnesium 2.1 mg/dL (1.7-2.8) 03/06/17 02:09 Total Bilirubin 1.5 mg/dL (0.2-1.0) H 03/05/17 08:38 Direct Bilirubin 1.0 mg/dL (0.1-0.5) H 03/05/17 08:38 AST 394 IU/L (10-42) H 03/06/17 02:09 ALT 290 IU/L (10-60) H 03/06/17 02:09 Alkaline Phosphatase 655 IU/L (42-121) H 03/05/17 08:38 Troponin I < 0.04 ng/mL (<0.49) 03/06/17 02:09 B-Natriuretic Peptide 472 pg/mL (5-100) H 03/05/17 07:00 Total Protein 5.9 g/dL (6.7-8.2) L 03/05/17 08:38 Albumin 2.8 g/dL (3.2-5.5) L 03/05/17 08:38 Globulin 3.1 g/dL (2.1-4.2) 03/05/17 08:38 Albumin/Globulin Ratio 0.9 (1.0-2.2) L 03/05/17 02:22 Lipase 77 U/L (22-51) H 03/05/17 08:38 TSH 0.11 uIU/mL (0.34-5.60) L 03/06/17 02:09 Free T4 1.46 ng/dL (0.58-1.64) 03/06/17 02:09
--- NOTE | 2017-03-07 12:27 | Discharge Plan ---
Discharge Plan Disposition: 01 Home, Self Care Condition: Stable Prescriptions: HYDROcod/ACETAM 5/325 [[place] 5/325] 1 - 2 tab PO Q4HR PRN #30 tablet PRN Reason: Pain Diet: Regular Activity Restrictions: no lifting over 15 lbs Shower Restrictions: No Driving Restrictions: Yes (for 3 days and not while taking pain medication) Weight Bearing: Full Weight No Smoking: If you smoke, Please STOP! Call for help. Follow-up with: Gideon Whatley MD [Provider Admit Priv/Credential] - 2 Weeks
--- NOTE | 2017-03-09 03:04 | OPERATIVE REPORT ---
DATE OF SURGERY: 03/06/2017 00:00:00 PREOPERATIVE DIAGNOSIS: Acute acalculous cholecystitis. POSTOPERATIVE DIAGNOSIS: Acute acalculous cholecystitis. NAME OF PROCEDURE: 1. Laparoscopic cholecystectomy. 2. Intraoperative cholangiogram. 3. Liver biopsy. SURGEON: Gideon Whatley MD ANESTHESIA: General. INDICATIONS FOR PROCEDURE: The patient is a 71-year-old female who presents in clinic with abdominal pain. She had an abdominal ultrasound, which revealed a thickened gallbladder wall without gallstones , having acalculous cholecystitis. Because of the continued abdominal pain, the patient came to the e mergency room and was admitted to the hospital with the diagnosis. FINDINGS AT SURGERY: The patient had acutely inflamed gallbladder without gallstones having acalculou s cholecystitis. The patient had an intraoperative cholangiogram which did not show any filling defec ts, having flow of contrast into the intestine. Normal biliary anatomy. The bile duct was slightly di lated. PROCEDURE: After informed consent was obtained, the patient taken to the operating room and placed in supine position. General anesthesia was administered. The patient's abdomen was then prepped and nikole ped in the usual sterile fashion. Prior to making any abdominal incisions, the skin was injected with 0.25% Marcaine. An infraumbilical incision was made in the skin using a scalpel. A 5 mm Optiview tro car was then inserted through this incision, through the fascia, and into the abdominal cavity under direct vision. The abdomen was then insufflated. Three 5-mm ports were then placed in the right upper quadrant under direct vision with a 5 mm port switched to a 12 mm port. The patient had acutely infl ewa gallbladder. A needle was then inserted in the gallbladder, draining it of its contents. The gal lbladder fundus was then grasped and lifted anteriorly and superiorly, exposing the triangle of Calot . The peritoneum in this area was then scored, exposing the cystic duct. The cystic duct was then dis sected free from surrounding structures. A clip was then placed across the cystic duct, gallbladder j unction. An incision was then made in the cystic duct. A cholangiogram catheter was then inserted and cholangiogram was then performed. Catheter was then removed. Clips were then placed across the dista l cystic duct with it then being divided. The cystic artery was identified, isolated, clipped proxima lly and distally, and then divided. The gallbladder was then dissected off the gallbladder bed using electrocautery, placed in an Endobag, and removed through the umbilical port. In the right upper quad rant, no significant bleeding was noted. A Ricardo-Cut needle was then inserted through the 5 mm port and into the liver obtaining a Ricardo-Cut biopsy as her liver function tests were elevated. The Ricardo-Cut nee dle was then removed. Hemostasis was obtained using electrocautery. The ports were then removed and n o bleeding was noted at the port sites, with the abdomen then being desufflated. The umbilical fascia l defect was closed using 0 Vicryl suture. Skin incisions were closed using 4-0 Monocryl subcuticular stitch. Dermabond was then applied. The patient was then awakened, extubated and taken from the oper ating room in stable condition. ESTIMATED BLOOD LOSS: Less than 5 mL. COMPLICATIONS: None. CONDITION OF THE PATIENT AT END OF PROCEDURE: Stable. SPECIMENS: Gallbladder and liver biopsy. DRAINS/PACKS: None. CLASSIFICATION OF WOUND: Clean contaminated. JOB #: [id number] EXT JOB #:[id number]
--- NOTE | 2017-03-09 04:01 | DISCHARGE SUMMARY ---
DATE OF ADMISSION: 03/05/2017 DATE OF DISCHARGE: 03/07/2017 REASON FOR ADMISSION: Acute abdominal pain. HISTORY OF PRESENT ILLNESS: The patient is a 71-year-old female who recently had an abdominal ultraso und for abdominal pain. She was diagnosed with acalculous cholecystitis. The patient was seen in surg ical clinic and was then scheduled for surgery later. However, the patient continued to have the abdo gamaliel pain, therefore came to the emergency room to be evaluated. PRINCIPAL DIAGNOSIS: Acute acalculous cholecystitis. OTHER MEDICAL PROBLEMS: Hypertension, hypercholesterolemia, hypothyroidism. PROCEDURES: The patient underwent a laparoscopic cholecystectomy, intraoperative cholangiogram and li tien biopsy on 03/06/2017. CONSULTATIONS: Hospitalist consult was obtained due to EKG irregularity. HOSPITAL COURSE: The patient was admitted to the hospital. She had elevated liver function tests. She was started on IV antibiotics and placed n.p.o. along with IV fluids. The patient was readied for manriquez rgery, but on rhythm strip was found to have arrhythmia. Therefore, surgery was delayed. A hospitalis t consult was obtained and appropriate labs were done. This did not show any new EKG changes and the patient was felt deemed safe to undergo the surgery. She then taken to surgery on 03/06/2017 and unde rwent the above procedure uneventfully. The patient was then transferred to the floor. She was starte d on a liquid diet. Oral pain medication was given. The patient was watched overnight. She remained a febrile with preoperative abdominal pain resolving. Her abdominal incisions remained clean, dry, and intact without any evidence of infection. She was then discharged home on postoperative day 1 in stab le condition. DISCHARGE PROGRAM: The patient will be discharged home. The patient will follow up in the surgical cl in in 7-14 days. Advanced diet to regular as tolerated. May shower. No lifting over 15 pounds for 2 weeks. She is to resume her prehospitalization medications. In addition, [place] 5/325 1-2 p.o. q.4-6 hours p.r.n. pain. JOB #: [id number] EXT JOB #:[id number]
== END 2017-03-07 12:58 | disposition home or self-care (01) | DRG 419 ==
LOC: EDUNIT# → ED 02:14 → OBS 03:21 → OBSVTOIN 18:35 → MS2 19:12
PROVIDERS: ADMIT Surgery; ATTEND Surgery
PROC: 0FB04ZX Excision of Liver, Percutaneous Endoscopic Approach, Diagnostic (ICD-10-PCS; 2017-03-06)
PROC: 0FT44ZZ Resection of Gallbladder, Percutaneous Endoscopic Approach (ICD-10-PCS; principal; 2017-03-06 11:38)
DX: K81.0 Acute cholecystitis (principal); I49.3 Ventricular premature depolarization; E03.9 Hypothyroidism, unspecified; I25.10 Atherosclerotic heart disease of native coronary artery without angina pectoris; I10 Essential (primary) hypertension; E78.00 Pure hypercholesterolemia, unspecified; N32.81 Overactive bladder; F17.210 Nicotine dependence, cigarettes, uncomplicated; I25.2 Old myocardial infarction; Z95.5 Presence of coronary angioplasty implant and graft; Z79.82 Long term (current) use of aspirin
CPT/HCPCS: 36415; 71010; 74181; 74300; 80048; 80053; 80076; 83690; 83735; 83880; 84439; 84443; 84450; 84460; 84484; 85025; 87070; 87205; 88304; 88307; 88313; 93005; 93306; 96361; 96365; 96366; 96374; 96375; 99283; 99284; 99285

== ENCOUNTER 2017-08-03 08:00 | Outpatient (CLI) | payer BC, MEDICARE ==
[2017-08-03 19:25] LABS: ALBUMIN 3.7 g/dL (3.2-5.5); ALBUMIN/GLOBULIN RATIO 1.2 (1.0-2.2); ALKALINE PHOSPHATASE 229 IU/L (42-121); ALT ALANINE AMINOTRANSFERASE 32 IU/L (10-60); AST ASPARTATE AMINOTRANSFERASE 32 IU/L (10-42); BILIRUBIN,TOTAL 0.3 mg/dL (0.2-1.0); BUN - BLOOD UREA NITROGEN 25 mg/dL (6-20); CALCIUM 9.1 mg/dL (8.5-10.3); CARBON DIOXIDE - CO2 24 mmol/L (21-32); CHLORIDE 111 mmol/L (101-111); CHOL/HDL RATIO 3.7 (<4.4); CHOLESTEROL 148 mg/dL; CREATININE 1.1 mg/dL (0.4-1.0); GFR - MDRD 49 (>89); GLUCOSE 82 mg/dL (70-100); HDL CHOLESTEROL 40 mg/dL; LDL CHOLESTEROL,CALCULATED 74 mg/dL; LDL/HDL RATIO 1.9 (<4.4); SODIUM 139 mmol/L (135-145); TOTAL PROTEIN 6.8 g/dL (6.7-8.2); VLDL CHOLESTEROL 34 mg/dL
== END 2017-08-03 08:01 | disposition home or self-care (01) ==
LOC: LAB.WCP 08:00
PROVIDERS: ATTEND Internal Medicine Cardiovascular Disease
DX: I10 Essential (primary) hypertension (principal); E78.5 Hyperlipidemia, unspecified
CPT/HCPCS: 36415; 80053; 80061; 83721

== ENCOUNTER 2018-04-14 15:02 | Outpatient (CLI) | payer MEDICARE ==
--- NOTE | 2018-04-15 11:17 | Mammography Report ---
Reason: SCREENING MAMMO Procedure Date: 04/14/2018 Accession Number: [id number] / [id number] Procedure: ELVIRA - Screening Mammo Dig Bilat CPT Code: FULL RESULT: EXAM: Screening Mammo Dig Bilat DATE: 04/14/2018 3:50 PM CLINICAL HISTORY: 72-year-old female with history of left breast biopsy with benign pathology results. TECHNIQUE: Bilateral CC and MLO views were obtained. COMPARISON: 05/23/2010. FINDINGS: The breasts demonstrate diffuse fatty replacement bilaterally. No suspicious masses, clustered microcalcifications, or regions of architectural distortion are identified. IMPRESSION: Negative examination RECOMMENDATION: Routine annual screening unless otherwise clinically indicated. BIRADS CATEGORY 1: Negative STANDARD QUALIFYING STATEMENTS: 1. This examination was not reviewed with the aid of Computer-Aided Detection (CAD). 2. A negative or benign imaging report should not delay biopsy if clinically suspicious findings are present. Consider surgical consultation if warrented. More than 5% of cancers are not identified by imaging. 3. Dense breasts may obscure an underlying neoplasm. 4. This examination was reviewed without the aid of 3D breast imaging (tomosynthesis).
== END 2018-04-14 15:03 | disposition home or self-care (01) ==
LOC: DI 15:02
DX: Z12.31 Encounter for screening mammogram for malignant neoplasm of breast (principal)
CPT/HCPCS: 77067

== ENCOUNTER 2018-05-15 05:11 | Emergency (ER) | payer MEDICARE ==
--- NOTE | 2018-05-15 05:45 | ED Physician Documentation ---
History of Present Illness - Stated complaint Stated Complaint: POST OP PAIN,REDNESS - Chief complaint Chief Complaint: Wound - History obtained from History obtained from: Patient, Family - History of Present Illness Timing: How many days ago (2) - Additonal information Additional information: 72-year-old female who has had a right carotid endarterectomy done [facility] in [place] 1 week ago has developed increased pain in the angle of the jaw on the right and some numbness to her tongue. She has enough pain that she is not able to open her mouth or chew without significant worsening of her pain. She has not had any increased swelling or redness to the area and no drainage to the area. She has had the other side done about 6 months ago she remembers the recovery from that and does not remember having any kind of issue with this type of pain. She was planning on waiting for her postoperative visit but was unable to control the pain with the oxycodone she has and she is unable to feed herself now. Review of Systems Constitutional: denies: Fever, Chills, Myalgias, Fatigue Eyes: denies: Decreased vision Ears: denies: Ear pain Nose: denies: Rhinorrhea / runny nose, Congestion Throat: reports: Other (There is numbness to the left tongue and pain at the angle of the jaw and pain with opening the mouth.). denies: Sore throat Cardiac: denies: Chest pain / pressure, Palpitations Respiratory: denies: Dyspnea, Cough GI: denies: Abdominal Pain, Nausea, Vomiting : denies: Dysuria, Frequency Skin: denies: Rash Musculoskeletal: reports: Neck pain. denies: Back pain, Extremity pain PD PAST MEDICAL HISTORY - Past Medical History Cardiovascular: Hypertension, High cholesterol, Coronary artery disease, [place] Respiratory: None Endocrine/Autoimmune: HyPOthyroidism GI: Ulcerative colitis : Incontinence HEENT: None Psych: None Musculoskeletal: Gout Derm: None - Past Surgical History Past Surgical History: Yes General: Appendectomy /[employer]: Hysterectomy Cardiovascular: Coronary stent - Present Medications Home Medications: Ambulatory Orders Medication Instructions Recorded Confirmed Aspirin 81 mg PO DAILY 06/28/16 03/05/17 Metoprolol Tartrate [Lopressor] 25 mg PO BID 06/28/16 03/05/17 Oxybutynin [Ditropan] 5 mg PO BID PRN 06/28/16 03/05/17 Allopurinol 100 mg PO BID 03/05/17 03/05/17 Amlodipine Besylate 5 mg PO DAILY 03/05/17 03/05/17 Atorvastatin Calcium [Lipitor] 80 mg PO DAILY 03/05/17 03/05/17 Levothyroxine Sodium 137 mcg PO DAILY 03/05/17 03/05/17 HYDROcod/ACETAM 5/325 [[place] 5/325] 1 - 2 tab PO Q4HR PRN #30 tablet 03/07/17 - Allergies Allergies/Adverse Reactions: Allergies Allergy/AdvReac Type Severity Reaction Status Date / Time gentyana jori Allergy Hives Verified 03/05/17 02:21 esomeprazole magnesium * AdvReac Unknown Verified 03/05/17 02:21 [From Nexium] - Social History Does the pt smoke?: Yes Smoking Status: Current every day smoker Does the pt drink ETOH?: No Does the pt have substance abuse?: No - Immunizations Immunizations are current?: Yes PD ED PE NORMAL - Vitals Vital signs reviewed: Yes - General General: Alert and oriented X 3, Well developed/nourished, Other (The patient appears to be in pain and appears dry. ) - HEENT HEENT: Atraumatic, PERRL, EOMI, Other (dry mucous membranes ) - Neck Neck: Supple, no meningeal sign, No bony TTP, Other (There is a fresh surgical site for the right carotid that appears to be healing well without erythema or drainage. The area is swollen and tender but not to a specific area. ) - Cardiac Cardiac: RRR, Other (2/6 holosystolic murmer at LSB. ) - Respiratory Respiratory: No respiratory distress, Clear bilaterally - Abdomen Abdomen: Soft, Non tender - Back Back: No CVA TTP, No spinal TTP - Derm Derm: Normal color, Warm and dry, No rash - Extremities Extremities: No deformity, No edema - Neuro Neuro: Alert and oriented X 3, No motor deficit, No sensory deficit, Normal speech Eye Opening: Spontaneous Motor: Obeys Commands Verbal: Oriented GCS Score: 15 - Psych Psych: Normal mood, Normal affect Results - Vitals Vitals: Vital Signs - 24 hr 05/15/18 05/15/18 05:15 06:43 Temperature 36.6 C Heart Rate 85 70 Respiratory 18 12 Rate Blood Pressure 144/84 H 142/63 H O2 Saturation 96 91 L Oxygen O2 Source Room air Oxygen Flow Rate 2 - Labs Labs: Laboratory Tests 05/15/18 05/15/18 05/15/18 05:58 05:58 05:58 WBC 10.6 RBC 4.25 Hgb 12.7 Hct 39.2 MCV 92.2 MCH 29.8 MCHC 32.4 RDW 16.4 H Plt Count 291 MPV 8.9 Neut # (Auto) 6.9 H Lymph # (Auto) 1.9 [place] # (Auto) 0.9 Eos # (Auto) 0.8 H Baso # (Auto) 0.1 Absolute Nucleated RBC 0.01 Nucleated RBC % 0.0 Sodium 136 Potassium 3.7 Chloride 106 Carbon Dioxide 24 Anion Gap 6.0 BUN 18 Creatinine 1.2 H Estimated GFR (MDRD) 44 L Glucose 111 H Calcium 8.7 Total Bilirubin 0.6 AST 23 ALT 23 Alkaline Phosphatase 236 H Troponin I < 0.04 Total Protein 6.5 L Albumin 3.4 Globulin 3.1 Albumin/Globulin Ratio 1.1 Lipase 22 Urine Color Urine Clarity Urine pH Ur Specific Brooks Urine Protein Urine Glucose (UA) Urine Ketones Urine Occult Blood Urine Nitrite Urine Bilirubin Urine Urobilinogen Ur Leukocyte Esterase Ur Microscopic Review Urine Culture Comments 05/15/18 07:27 WBC RBC Hgb Hct MCV MCH MCHC RDW Plt Count MPV Neut # (Auto) Lymph # (Auto) [place] # (Auto) Eos # (Auto) Baso # (Auto) Absolute Nucleated RBC Nucleated RBC % Sodium Potassium Chloride Carbon Dioxide Anion Gap BUN Creatinine Estimated GFR (MDRD) Glucose Calcium Total Bilirubin AST ALT Alkaline Phosphatase Troponin I Total Protein Albumin Globulin Albumin/Globulin Ratio Lipase Urine Color YELLOW Urine Clarity CLEAR Urine pH 6.0 Ur Specific [place] 1.010 Urine Protein NEGATIVE Urine Glucose (UA) NEGATIVE Urine Ketones NEGATIVE Urine Occult Blood NEGATIVE Urine Nitrite NEGATIVE Urine Bilirubin NEGATIVE Urine Urobilinogen 0.2 (NORMAL) Ur Leukocyte Esterase NEGATIVE Ur Microscopic Review NOT INDICATED Urine Culture Comments NOT INDICATED - Rads (name of study) CTA neck Radiology: Prelim report reviewed (Impression: 1. Carotid and vertebral arteries are patent without significant stenosis or dissection. 2. Acute postsurgical changes surrounding the right carotid bifurcation, consistent with recent carotid endarterectomy. No evidence of significant hematoma or mass- effect from postsurgical changes. 3. The region of the left external carotid artery is occluded. There is faint reconstitution of proximal branches. 4. Postsurgical changes are also present adjacent to the left carotid bifurcation, consistent with prior left carotid endarterectomy.), EMP read indepedently, See rad report Procedures - IVC sono (time) 0600 Bedside IVC sono: IVC measures (cm) (1.23), IVC collapsed c insp (cm) (complete), Dehydration (est 1 liter deficit) PD MEDICAL DECISION MAKING - ED course Complexity details: reviewed old records, reviewed results, re-evaluated patient, considered differential, d/w patient, d/w family ED course: 72-year-old female 1 week status post right carotid endarterectomy has developed right neck pain and jaw pain. She is having trouble even opening her mouth and she has developed some numbness to her tongue. She has very sensitive skin o verlying the neck at the angle of the jaw. The wound itself is without evidence of acute inflammation. The patient is treated in the emergency department initially with dexamethasone and subsequently administered Dilaudid and Zofran. Her surgeon is contacted and recommends CTA of the neck and this is done showing no significant abnormality. The patient does have some improvement in her pain and is comfortable with going home to follow-up with her surgeon tomorrow. She was found to be mildly dehydrated on interrogation of the inferior vena cava and she was administered a liter of saline as well. Departure - Departure Disposition: 01 Home, Self Care Clinical Impression: Post-operative pain Condition: Stable Instructions: Post Op Pain Manage Home Meds, ED Post Op Pain Follow-Up: Paula Henley MD [Physician No Access] -
[2018-05-15] MEDS ORDERED: SODIUM CHLORIDE 0.9% 1,000 ML IV ONE (06:14)
[2018-05-15] MEDS ORDERED: DEXAMETHASONE 10 MG/ML VIAL IVP STA (06:14)
[2018-05-15] MEDS ORDERED: ONDANSETRON 4 MG/2 ML VIAL IVP STA (06:14)
[2018-05-15] MEDS ORDERED: HYDROmorphone 1 MG/ML CARPUJECT IVP STA (06:14)
[2018-05-15 06:19] LABS: BASOPHILS # (AUTO) 0.1 10^3/uL (0.0-0.1); BASOPHILS % (AUTO) 0.6 %; EOSINOPHILS # (AUTO) 0.8 10^3/uL (0.0-0.7); EOSINOPHILS % (AUTO) 7.4 %; HGB - HEMOGLOBIN 12.7 g/dL (12.0-16.0); LYMPHOCYTES # (AUTO) 1.9 10^3/uL (1.5-3.5); LYMPHOCYTES % (AUTO) 18.2 %; MEAN CORPUSCULAR HEMOGLOBIN 29.8 pg (27.0-31.0); MEAN CORPUSCULAR HGB CONC 32.4 g/dL (32.0-36.0); MEAN CORPUSCULAR VOLUME 92.2 fL (81.0-99.0); MEAN PLATELET VOLUME 8.9 fL (7.9-10.8); MONOCYTES # (AUTO) 0.9 10^3/uL (0.0-1.0); MONOCYTES % (AUTO) 8.4 %; NEUTROPHILS # (AUTO) 6.9 10^3/uL (1.5-6.6); NEUTROPHILS % (AUTO) 65.4 %; PLT - PLATELET COUNT 291 10^3/uL (130-450); RED BLOOD COUNT 4.25 10^6/uL (4.20-5.40); RED CELL DISTRIBUTION WIDTH 16.4 % (12.0-15.0); WHITE BLOOD COUNT 10.6 x10^3/uL (4.8-10.8)
[2018-05-15 06:30] LABS: ALBUMIN 3.4 g/dL (3.2-5.5); ALBUMIN/GLOBULIN RATIO 1.1 (1.0-2.2); BILIRUBIN,TOTAL 0.6 mg/dL (0.2-1.0); CALCIUM 8.7 mg/dL (8.5-10.3); CREATININE 1.2 mg/dL (0.4-1.0); TOTAL PROTEIN 6.5 g/dL (6.7-8.2)
[2018-05-15] MEDS ORDERED: DEXAMETHASONE 10 MG/ML VIAL ONE (06:34)
[2018-05-15] MEDS ORDERED: IOPAMIDOL-300 100 ML VIAL ONE (07:09)
[2018-05-15 07:50] LABS: BILIRUBIN,URINE NEGATIVE (NEGATIVE); GLUCOSE, URINE (UA) NEGATIVE (NEGATIVE); KETONES,URINE (UA) NEGATIVE (NEGATIVE); LEUKOCYTE ESTERASE, URINE NEGATIVE (NEGATIVE); NITRITE,URINE NEGATIVE (NEGATIVE); OCCULT BLOOD,URINE NEGATIVE (NEGATIVE); PROTEIN,URINE NEGATIVE (NEGATIVE); UROBILINOGEN,URINE 0.2 (NORMAL) E.U./dL (NORMAL)
[2018-05-15 07:51] LABS: CLARITY,URINE CLEAR (CLEAR)
[2018-05-15] MEDS ORDERED: IOPAMIDOL-300 100 ML VIAL IVP ONE (08:03)
--- NOTE | 2018-05-15 08:22 | CT Report ---
Reason: R neck pain/pressure numb tongue s/p endarterectom Procedure Date: 05/15/2018 Accession Number: [id number] / [id number] Procedure: CT - Neck Angio CPT Code: FULL RESULT: EXAM: CT ANGIOGRAM NECK EXAM DATE: 05/15/2018 07:44 AM. CLINICAL HISTORY: 72-year-old woman with right-sided neck pain and pressure and tongue numbness status post carotid endarterectomy. COMPARISON: None. TECHNIQUE: Routine axial helical imaging was performed from the skull base through the aortic arch. Reconstructions: Routine multiplanar 3D MIP reconstructions. IV Contrast: ISOVUE 300 80mL. Evaluation of arterial stenosis is based on a NASCET method of measurement. In accordance with CT protocol optimization, one or more of the following dose reduction techniques were utilized for this exam: automated exposure control, adjustment of mA and/or KV based on patient size, or use of iterative reconstructive technique. FINDINGS: RIGHT: - Common and Internal Carotid: Patent without signficant stenosis. The bifurcation is mildly irregular in contour but widely patent and there are surrounding acute postsurgical changes, consistent with history of carotid endarterectomy. Stenosis by NASCET criteria: 0%. No evidence of dissection. There is mild calcified atherosclerotic plaque along the siphon. No evidence of aneurysm along intracranial ICA. - External Carotid: Unremarkable. - Vertebral: Patent without significant stenosis. No evidence of dissection. LEFT: - Common and Internal Carotid: Patent without signficant stenosis. The bifurcation is mildly irregular in contour and there are adjacent to surgical clips, most consistent with prior carotid endarterectomy. Stenosis by NASCET criteria: 0%. No evidence of dissection. There is mild calcified atherosclerotic plaque along the siphon. No evidence of aneurysm along intracranial ICA. - External Carotid: The origin of the external carotid artery is occluded. There is faint reconstitution of proximal branches. - Vertebral: Patent without significant stenosis. No evidence of dissection. SOFT TISSUES AND BONES: Fat stranding, surgical clips, and minimal subcutaneous emphysema is present in the right neck surrounding the carotid bifurcation, consistent with history of recent carotid endarterectomy. No evidence of significant hematoma or mass-effect from postsurgical changes. Surgical clips are also present adjacent to the left carotid bifurcation, also consistent with prior carotid endarterectomy. Lung apices are clear. No evidence of acute fracture or malalignment of the cervical spine, but multilevel degenerative changes are present. IMPRESSION: 1. Carotid and vertebral arteries are patent without significant stenosis or dissection. 2. Acute postsurgical changes surrounding the right carotid bifurcation, consistent with recent carotid endarterectomy. No evidence of significant hematoma or mass-effect from postsurgical changes. 3. 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 There is faint reconstitution of proximal branches. 4. Postsurgical changes are also present adjacent to the left carotid bifurcation, consistent with prior left carotid endarterectomy. [facility]
[2018-05-15 08:30] VITALS: BP 140/68
== END 2018-05-15 09:19 | disposition home or self-care (01) ==
LOC: ED 05:11
DX: G89.18 Other acute postprocedural pain (principal); E86.0 Dehydration; I10 Essential (primary) hypertension; I25.10 Atherosclerotic heart disease of native coronary artery without angina pectoris; I25.2 Old myocardial infarction; Z95.5 Presence of coronary angioplasty implant and graft; F17.200 Nicotine dependence, unspecified, uncomplicated
CPT/HCPCS: 36415; 70498; 80053; 81003; 83690; 84484; 85025; 96361; 96374; 96375; 99283; J1170; Q9967; 81001; 87086

== ENCOUNTER 2020-07-11 16:22 | Outpatient (CLI) | payer MEDICARE, BC ==
[2020-07-11 18:44] LABS: BASOPHILS # (AUTO) 0.1 10^3/uL (0.0-0.1); BASOPHILS % (AUTO) 0.6 %; EOSINOPHILS # (AUTO) 0.6 10^3/uL (0.0-0.7); EOSINOPHILS % (AUTO) 5.8 %; HCT - HEMATOCRIT 42.1 % (37.0-47.0); HGB - HEMOGLOBIN 13.4 g/dL (12.0-16.0); LYMPHOCYTES # (AUTO) 2.6 10^3/uL (1.5-3.5); LYMPHOCYTES % (AUTO) 26.7 %; MEAN CORPUSCULAR HEMOGLOBIN 29.5 pg (27.0-31.0); MEAN CORPUSCULAR HGB CONC 31.8 g/dL (32.0-36.0); MEAN CORPUSCULAR VOLUME 92.7 fL (81.0-99.0); MONOCYTES # (AUTO) 0.6 10^3/uL (0.0-1.0); NEUTROPHILS # (AUTO) 5.9 10^3/uL (1.5-6.6); NEUTROPHILS % (AUTO) 60.6 %; PLT - PLATELET COUNT 272 10^3/uL (130-450); RED BLOOD COUNT 4.54 10^6/uL (4.20-5.40); RED CELL DISTRIBUTION WIDTH 16.3 % (12.0-15.0); WHITE BLOOD COUNT 9.8 x10^3/uL (4.8-10.8)
[2020-07-11 19:05] LABS: ALBUMIN 3.9 g/dL (3.2-5.5); ALBUMIN/GLOBULIN RATIO 1.1 (1.0-2.2); ALKALINE PHOSPHATASE 218 IU/L (42-121); ALT ALANINE AMINOTRANSFERASE 27 IU/L (10-60); AST ASPARTATE AMINOTRANSFERASE 25 IU/L (10-42); BILIRUBIN,TOTAL 0.3 mg/dL (0.2-1.0); BUN - BLOOD UREA NITROGEN 36 mg/dL (6-20); CALCIUM 9.7 mg/dL (8.5-10.3); CARBON DIOXIDE - CO2 23 mmol/L (21-32); CHLORIDE 110 mmol/L (101-111); CHOL/HDL RATIO 4.2 (<4.4); CHOLESTEROL 150 mg/dL; CREATININE 1.4 mg/dL (0.4-1.0); GFR - MDRD 36 (>89); GLUCOSE 137 mg/dL (70-100); HDL CHOLESTEROL 36 mg/dL; LDL CHOLESTEROL,CALCULATED 52 mg/dL; LDL/HDL RATIO 1.4 (<4.4); SODIUM 142 mmol/L (135-145); TOTAL PROTEIN 7.5 g/dL (6.7-8.2); TRIGLYCERIDES 308 mg/dL; URIC ACID 6.4 mg/dL (2.6-7.2); VLDL CHOLESTEROL 62 mg/dL
[2020-07-11 19:14] LABS: THYROID STIMULATING HORMONE 0.09 uIU/mL (0.34-5.60)
[2020-07-11 19:58] LABS: FREE T4 (FREE THYROXINE) 1.38 ng/dL (0.58-1.64)
== END 2020-07-11 23:59 | disposition home or self-care (01) ==
LOC: LAB.WCP 16:22
PROVIDERS: ATTEND Family Medicine
DX: E78.5 Hyperlipidemia, unspecified (principal); E03.9 Hypothyroidism, unspecified; M10.00 Idiopathic gout, unspecified site; I10 Essential (primary) hypertension
CPT/HCPCS: 36415; 80053; 80061; 83721; 84439; 84443; 84550; 85025